=== PATIENT | female | born 1955 | race Caucasian/White ===

== ENCOUNTER 2016-12-16 19:53 | Emergency (ER) | payer MEDICARE, MEDICAID ==
[2016-12-16] MEDS ORDERED: NALOXONE HCL 1 MG/ML SYR IVP PRN (20:10)
[2016-12-16] MEDS ORDERED: 0.9 % SODIUM CHLORIDE 1000ML 1,000 ML IV SCH (20:15)
--- NOTE | 2016-12-16 20:18 | Emergency Department Record ---
History of Present Illness - General Chief Complaint: Syncope Stated Complaint: PASSED OUT Time Seen by Provider: 12/16/16 20:08 Source: Family Mode of Arrival: Wheelchair Limitations: No limitations Travel/Exposure to [place] Within 21 Days of Symptoms: No - History of Present Illness Initial Comments: 61 yo female presents to ED for evaluation of alteration in her mental status. Per family, the patient was at a family outing this evening when she became more sleepy and unresponsive, was unable to stand, and "passed out" becoming incontinent of urine. Patient is unable to provider history of examination. Family denies any new medications or drug use prior to arrival. MD Complaint: Collapsed Onset/Timin -: Minutes(s) Prodromal Symptoms: None Witnessed: Yes - by bystander Injuries Sustained Associated with Event: None Treatments Prior to Arrival: None - Adah Coma Scale Eye Response: (3) Open to voice Motor Response: (5) Localizes to pain Verbal Response: (4) Confused conversation Adah Total: 12 - Related Data Allergies Allergy/AdvReac Type Severity Reaction Status Date / Time sulfamethoxazole Allergy kidney Verified 12/16/16 20:46 [From Bactrim] trouble trimethoprim [From Bactrim] Allergy kidney Verified 12/16/16 20:46 trouble Review of Systems ROS unobtainable: Due to mental status Physical Exam - General General Appearance: Other (Patient is drowsy on examination, unable to sit up, no focal weakness on examination) Limitations: Altered mental status - Head Head exam: Atraumatic, Normocephalic, Normal inspection Head exam detail: negative: Abrasion, Contusion, Mae's sign, General tenderness, Hematoma, Laceration - Eye Eye exam: Other (dialted pupils on examination). negative: Conjunctival injection, Periorbital swelling, Periorbital tenderness - ENT Ear exam: negative: Auricular hematoma, Auricular trauma Nasal Exam: negative: Active bleeding, Discharge, Dried blood, Foreign body Mouth exam: negative: Drooling, Laceration, Muffled voice, Tongue elevation - Neck Neck exam: Normal inspection. negative: Meningismus, Tenderness - Respiratory Respiratory exam: Normal lung sounds bilaterally. negative: Rales, Respiratory distress, Rhonchi, Stridor - Cardiovascular Cardiovascular Exam: Regular rate, Normal rhythm, Normal heart sounds - GI/Abdominal GI/Abdominal exam: Soft. negative: Rebound, Rigid, Tenderness - Rectal Rectal exam: Deferred - exam: Deferred - Extremities Extremities exam: Other (previous amputation great toe left foot). negative: Calf tenderness, Pedal edema - Back Back exam: Denies: CVA tenderness (R), CVA tenderness (L) - Neurological Neurological exam: Altered. negative: Motor sensory deficit - Psychiatric Psychiatric exam: Other (cannot assess due to mental status) - Skin Skin exam: Normal color. negative: Abrasion Type of lesion: negative: abrasion Course - Reevaluation(s) Reevaluation #1: 12/16/16 20:23 Initial accu check: 193 Patient put on oxygen via NC, given Narcan 0.4 mg with increased motor response. Patient is more alert, reports smoking marijuana prior to arrival. Will continue to monitor pending laboratory results. EKG: NSR 75 Normal axis, IVCD Q waves III, AVF Reevaluation #2: 12/16/16 20:58 Labs reviewed, lactic acid 2.5, labs are otherwise grossly unremarkable for an acute process. UDS pending. Reevaluation #3: 12/16/16 21:08 UDS is negative except for TCAs. EKG is not c/w TCA overdose, patient is going to CT for imaging at this time. Reevaluation #4: 12/16/16 21:44 CXR: Limited by AP view, chronic chagnes, nothing acute. CT Brain: Negative. Patient reassessed and continues to exhibit altered mental state. Will initiate transfer for further evaluation. Reevaluation #5: 12/16/16 22:41 Case was discussed with Dr. Romero, will accept transfer for further evaluation. Patient and family were updated on the plan of care. Medical Decision Making - Lab Data Result diagrams: 12/16/16 19:53 12/16/16 19:53 Critical Care Time Critical Care Time: Yes Total Critical Care Time: 45 Critical Care Time: Diagnosis and treatment for numerous etiologies of altered mental status, stabilization, IVF resuscitation, frequent reassessments and arrangement for transfer. Disposition Disposition: Transfer Clinical Impression: Marijuana use Mental status alteration Qualifiers: Altered mental status type: unspecified Qualified Code(s): R41.82 - Altered mental status, unspecified Disposition: Acute Care Hospital Transfer Transfer To: [facility] Reason For Transfer: Altered Mental Status Accepting Physician: Ayamarjhi Time Discussed w/Accepting Physician: 22:43 Condition: (2) Stable Forms: Patient Portal Access Time of Disposition: 22:43 Quality - Quality Measures Quality Measures: N/A - Blood Pressure Screening Does Patient Have Any of the Following: No Blood Pressure Classification: Pre-Hypertensive BP Reading Systolic Measurement: 105 Diastolic Measurement: 87 Screening for High Blood Pressure: < Pre-Hypertensive BP, F/U Documented > [ [id number]] Pre-Hypertensive Follow-up Interventions: Referral to alternative/primary care provider.
[2016-12-16] MEDS ORDERED: ONDANSETRON HCL IV 4 MG/2 ML VIAL IVP ONE (20:24)
[2016-12-16 20:30] LABS: BASO % 0.3 % (0-6); EOS % 4.8 % (0-6); GRAN % 47.3 % (47-80); HEMATOCRIT 38.5 % (35.0-47.0); HEMOGLOBIN 12.8 gm/dl (11.6-16.0); LYMPH % 39.4 % (16-45); MEAN CELL VOLUME 84.6 fl (81-97); MEAN CORPUSCULAR HEMOGLOBIN 28.1 pg (27-33); MEAN CORPUSCULAR HGB CONC 33.2 g/dl (32-36); MEAN PLATELET VOLUME 10.4 fl (7.4-10.4); MONO % 8.2 % (0-9); PLATELET COUNT 320 K/uL (130-400); RED BLOOD COUNT 4.55 M/uL (3.80-5.40); RED CELL DISTRIBUTION WIDTH 13.3 % (11.5-14.5)
[2016-12-16 20:36] LABS: AMMONIA 24.2 umol/L (9-30); LACTIC ACID 2.5 mmol/L (0.7-2.1)
[2016-12-16 20:50] LABS: URINE APPEARANCE CLEAR; URINE BILIRUBIN NEGATIVE (NEGATIVE); URINE BLOOD NEGATIVE (NEGATIVE); URINE COLOR YELLOW; URINE GLUCOSE (UA) NEGATIVE (NEGATIVE); URINE KETONE TRACE (NEGATIVE); URINE LEUKOCYTE ESTERASE NEGATIVE (NEGATIVE); URINE NITRITE NEGATIVE (NEGATIVE); URINE PROTEIN TRACE (NEGATIVE); URINE UROBILINOGEN 0.2 E.U./dL (0.20 - 1.00)
[2016-12-16 20:51] LABS: ALB/GLOB RATIO 1.3 (1.1-1.8); ALBUMIN 4.1 gm/dL (3.5-5.0); ALKALINE PHOSPHATASE 80 U/L (38-126); ALT/SGPT 33 U/L (9-52); AST/SGOT 20 U/L (14-36); BLOOD UREA NITROGEN 19 mg/dL (7-17); CREATININE 1.2 mg/dL (0.52-1.04); EST GLOMERULAR FILTRATION RATE 48 ml/min; GLUCOSE,RANDOM 186 mg/dL (70-110); TOTAL PROTEIN 7.2 gm/dL (6.3-8.2)
[2016-12-16 20:52] LABS: TROPONIN I < 0.012 ng/mL (0.00-0.034)
[2016-12-16 20:58] LABS: AMPHETAMINE SCREEN URINE NOT DETECTED; BARBITURATE SCREEN URINE NOT DETECTED; BENZODIAZEPINE SCREEN URINE NOT DETECTED; COCAINE SCREEN URINE NOT DETECTED; METHADONE SCREEN URINE NOT DETECTED; METHAMPHETAMINE SCREEN NOT DETECTED; OPIATE SCREEN URINE NOT DETECTED; OXYCODONE SCREEN URINE NOT DETECTED; PHENCYCLIDINE SCREEN URINE NOT DETECTED; PROPOXYPHENE SCREEN URINE NOT DETECTED; THC SCREEN URINE NOT DETECTED; TRICYCLIC ANTIDEPRESSANT SCRN DETECTED
--- NOTE | 2016-12-18 17:10 | RADIOLOGY REPORT ---
EXAM: CHEST AP or PA ONLY HISTORY: DIFFICULTY IN BREATHING, ALTERED MENTAL STATUS. TECHNIQUE: AP semiupright portable chest. COMPARISON: None. FINDINGS: Thoracic dextroscoliosis. Patient also appears somewhat rotated towards the left. This in conjunction with the AP semiupright positioning limits evaluation of the heart size and also the left lung base, which is largely obscured by the heart. Heart size is probably at about the upper limits of normal and as visualized, no definite acute infiltrate seen. There are likely some surgical clips faintly seen in the left upper quadrant of the abdomen. Some elevation of the right hemidiaphragm. IMPRESSION: 1. LIMITED STUDY WITH AP SEMIUPRIGHT POSITIONING AND SCOLIOSIS WELL ROTATION. 2. HEART SIZE AT ABOUT THE UPPER LIMITS OF NORMAL. SOME ELEVATION OF THE RIGHT HEMIDIAPHRAGM BUT NO DEFINITE ACUTE INFILTRATE SEEN. JOB NUMBER: [id number] MTDD
--- NOTE | 2016-12-18 17:37 | CT SCAN REPORT ---
EXAM: CT SCAN HEAD WO CONTRAST HISTORY: ALTERED MENTAL STATUS. TECHNIQUE: Axial CT scan of the head performed without IV contrast. COMPARISON: None. FINDINGS: No definite acute intracranial hemorrhage identified. No focal mass effect or midline shift apparent. No definite acute infarct or intracranial mass lesion is seen. There was some patient motion artifact on the initial set of images with the entire study being repeated because of this, at no additional charge to the patient. IMPRESSION: EMERGENCY NONCONTRAST HEAD CT APPEARS ESSENTIALLY NEGATIVE WITH NO DEFINITE ACUTE INTRACRANIAL HEMORRHAGE OR FOCAL MASS EFFECT IDENTIFIED. JOB NUMBER: [id number] MTDD
== END 2016-12-16 23:49 | disposition short-term general hospital (02) ==
LOC: ER 19:53
DX: R41.82 Altered mental status, unspecified (principal); F12.90 Cannabis use, unspecified, uncomplicated
CPT/HCPCS: 99291 ×2; 96374; 96375; 96361; 83605; 82140; 85025; 84484; 80053; 36416; 82948; 81003; 80305; 71010; 70450; 93005; 93010; G0480; J2405; 80320; J2310; J7030